=== PATIENT | male | born 1970 | race Caucasian/White ===

== ENCOUNTER → 2016-06-24 | Outpatient (CLI) | payer SELFPAY ==
--- NOTE | 2016-06-24 12:57 | DI ---
Indication: Right lower quadrant pain, history of kidney stones and lithotripsy Procedure: CT RENAL W/O CONTRAST: Encounter: Initial Comparison: None Technique: Axial CT images were performed through the abdomen and pelvis without intravenous contrast. Coronal and sagittal reformatted images were also obtained. Automated Exposure Control and Iterative Reconstruction dose reducing techniques were utilized. Findings: Lower chest: The visualized lower lungs are well-aerated without focal airspace disease seen. The visualized heart is normal in size without pericardial effusion. Abdomen: The noncontrast liver is homogeneous in attenuation. The gallbladder is distended and appears normal. No biliary ductal dilatation. The noncontrast pancreas is homogeneous in attenuation. The spleen is normal in size and attenuation. The adrenal glands are within normal limits. Bilateral nonobstructing nephrolithiasis with stones measuring up to 6 mm. The noncontrast kidneys appear otherwise grossly normal with no hydronephrosis, perinephric stranding, or renal masses appreciated allowing for lack of intravenous contrast. The ureters are normal in course and caliber. The abdominal aorta is normal in course and caliber with scattered aortoiliac atherosclerotic calcifications noted. The stomach is partially distended and appears grossly normal. Small bowel loops are normal in caliber without evidence of obstruction. The colon appears grossly normal. The appendix is normal. No intra-abdominal free air, free fluid, focal fluid collections, or lymphadenopathy. Pelvis: The bladder is distended and appears normal. The prostate and seminal vesicles appear grossly normal. No pelvic free fluid or lymphadenopathy. Osseous structures and soft tissues: No acute osseous abnormality identified. Mild degenerative spondylosis of the visualized spine. Impression: Bilateral nonobstructing nephrolithiasis measuring up to 6 mm with no obstructing renal or ureteral stones, hydroureteronephrosis, or other evidence of obstructive uropathy. .
== END ==
LOC: IMA 10:38
PROVIDERS: ATTEND Family Medicine
DX: N20.0 Calculus of kidney (principal); R10.31 Right lower quadrant pain; Z85.50 Personal history of malignant neoplasm of unspecified urinary tract organ